=== PATIENT | male | born 1975 | race Caucasian/White ===

== ENCOUNTER 2018-01-27 08:06 | Emergency (ER) | payer OTHER ==
--- NOTE | 2018-01-27 08:27 | ED ---
Throat Pain/Nasal Congestion - HPI Summary HPI Summary: This patient is a 42 year old M presenting to [facility] with a chief complaint of left eyelid swelling and erythema for the past two days that has worsened this morning with dry yellow discharge. He was unable to open his eye until cleaned the area with warm water. Patient reports a current headache. Pain is rated 5/ 10 in severity. Patient denies eye pain and blurred vision. - History of Current Complaint Chief Complaint: EDEyeProblem Time Seen by Provider: 01/27/18 08:18 Hx Obtained From: Patient Onset/Duration: Lasting Days, Worse Since - this morning Cough: None Related History: Smoking - Allergies/Home Medications Allergies/Adverse Reactions: Allergies Allergy/AdvReac Type Severity Reaction Status Date / Time No Known Allergies Allergy Verified 01/27/18 08:15 PMH/Surg Hx/FS Hx/Imm Hx Endocrine/Hematology History: Denies: Hx Sickle Cell Disease Cardiovascular History: Denies: Hx Hypertension EENT History: Denies: Hx Hearing Aid Infectious Disease History: No Infectious Disease History: Denies: Traveled Outside the [place] in Last 30 Days - Family History Known Family History: Negative: Cardiac Disease - Social History Alcohol Use: None Hx Substance Use: No Hx Tobacco Use: Yes Smoking Status (MU): Light Every Day Tobacco Smoker Review of Systems Positive: Drainage, Erythema. Negative: Blurred Vision Positive: Headache All Other Systems Reviewed And Are Negative: Yes Physical Exam - Summary Physical Exam Summary: VITAL SIGNS: Reviewed. GENERAL: Patient is a well-developed and nourished male who is lying comfortable in the stretcher. Patient is not in any acute respiratory distress. HEAD AND FACE: No signs of trauma. No ecchymosis, hematomas or skull depressions. No sinus tenderness. EYES: PERRLA, EOMI x 2, injected conjunctiva, no nystagmus, upper eyelid with swelling and redness no eye pain with eye movement or blurred vision EARS: Hearing grossly intact. Ear canals and tympanic membranes are within normal limits. MOUTH: Oropharynx within normal limits. NECK: Supple, trachea is midline, no adenopathy, no JVD, no carotid bruit, no c- spine tenderness, neck with full ROM. CHEST: Symmetric, no tenderness at palpation LUNGS: Clear to auscultation bilaterally. No wheezing or crackles. CVS: Regular rate and rhythm, S1 and S2 present, no murmurs or gallops appreciated. ABDOMEN: Soft, non-tender. No signs of distention. No rebound no guarding, and no masses palpated. Bowel sounds are normal. EXTREMITIES: FROM in all major joints, no edema, no cyanosis or clubbing. NEURO: Alert and oriented x 3. No acute neurological deficits. Speech is normal and follows commands. SKIN: Dry and warm Triage Information Reviewed: Yes Vital Signs On Initial Exam: Initial Vitals Temp Pulse Resp BP Pulse Ox 97.2 F 88 17 170/119 98 01/27/18 08:12 01/27/18 08:12 01/27/18 08:12 01/27/18 08:12 01/27/18 08:12 Vital Signs Reviewed: Yes Diagnostics - Vital Signs Vital Signs Temp Pulse Resp BP Pulse Ox 01/27/18 08:12 97.2 F 88 17 170/119 98 - Laboratory Lab Statement: Any lab studies that have been ordered have been reviewed, and results considered in the medical decision making process. EENT Course/Dx - Course Assessment/Plan: This patient is a 42 year old M presenting to [facility] with a chief complaint of left eyelid swelling and erythema for the past two days that has worsened this morning with dry yellow discharge. He was unable to open his eye until cleaned the area with warm water. Patient reports a current headache. Pain is rated 5/10 in severity. Patient denies eye pain and blurred vision. It seems that the patient has an a stye as well as an acute conjunctivitis. Therefore the patient was given amoxicillin and ofloxacin. Discussed the findings with the patient and he was follow-up with primary care physician. The patient understands and agrees. Patient was found to have increased blood pressure however the patient reports that he is in pain. The pain is in his lower extremities because he had and mechanical fall but he reports getting better. The repeat blood pressure is 170/101. He reports that he has no history of hypertension. He also reports that he took 2 shots of espresso in his coffee and he thinks that the blood pressure is due to the pain and the coffee. The patient doesnt want to have any medications until he follows up with the primary care physician. Patient was given INSTRUCTIONS about high blood pressure we had a long discussion about controlling the blood pressure and he still wants to follow-up with the primary care physician. Therefore the patient will be discharged home with follow-up with primary care physician. - Diagnoses Provider Diagnoses: Conjunctivitis, Sty, external Discharge - Sign-Out/Discharge Documenting (check all that apply): Patient Departure - discharge - Discharge Plan Condition: Stable Disposition: HOME Prescriptions: Amoxicillin PO (*) [Amoxicillin 875 MG (*)] 875 mg PO BID #20 tab Ciprofloxacin 0.3% OPTH.ANUJ* [Cipro 0.3% Opth*] 2 drop LEFT EYE Q4H #1 btl Ofloxacin 0.3% (Eye Drop) [Ocuflox OPTH 0.3% (Eye Drop)] 1 drop BOTH EYES QID # 1 btl Patient Education Materials: Stye (ED), Conjunctivitis (ED) Referrals: [facility] [place] [facility] REFERRAL [Outside] - 2 Days Additional Instructions: FOLLOW UP WITH YOUR PRIMARY CARE PROVIDER WITHIN ONE WEEK FOR HIGH BLOOD PRESSURE NOTED TODAY. IF YOU DO NOT HAVE A PRIMARY CARE PROVIDER PLEASE CALL THE [facility] [place] [facility] REFERRAL NUMBER. RETURN TO THE EMERGENCY DEPARTMENT FOR ANY WORSENING OR NEW SYMPTOMS. - Billing Disposition and Condition Condition: STABLE Disposition: Home - Attestation Statements Document Initiated by Estefaniaibe: Yes Documenting Scribe: Giana Yoo Provider For Whom Tyrone is Documenting (Include Credential): Adarsh Sandoval MD Scribe Attestation: IGiana, scribed for Adarsh Sandoval MD on 01/27/18 at 1344. Scribe Documentation Reviewed: Yes Provider Attestation: The documentation as recorded by the [facility] [facility] accurately reflects the service I personally performed and the decisions made by me, Adarsh Sandoval MD
[2018-01-27] MEDS ORDERED: Amoxicillin/Clavulanate TAB* 875 MG PO ONE (08:46)
[2018-01-27] MEDS ORDERED: Ofloxacin 0.3% (Eye Drop) 5 ml BTL BOTH EYES SCH (09:00)
[2018-01-27 09:24] VITALS: BP 172/102
== END 2018-01-27 09:24 | disposition home or self-care (01) ==
LOC: ED 08:06
DX: H10.9 Unspecified conjunctivitis (principal); H00.016 Hordeolum externum left eye, unspecified eyelid
CPT/HCPCS: 99282; A9270-GY